=== PATIENT | male | born 1950 | race Caucasian/White ===

== ENCOUNTER 2019-07-25 09:20 | Day surgery (SDC) | payer MEDICARE, OTHER ==
[~2019-07-25 09:20] MED LIST: CEFAZOLIN 2 Gram 2 GM/50 ML BAG IVPB ONE; CELECOXIB 100 MG CAPSULE PO ONE; FAMOTIDINE 20MG TABLET PO ONE; MECLIZINE 25 MG TABLET PO ONE; METOCLOPRAMIDE 10 MG TABLET PO ONE; VANCOMYCIN 1GM/200ML PREMIX 1 GM/200 ML PIGGYBACK IVPB ONE
[2019-07-25] MEDS ORDERED: LIDOCAINE 2% MDV (20MG/ML) 20ML VIAL IV ONE (09:21)
[2019-07-25] MEDS ORDERED: PROPOFOL 10 MG/ML VIAL IV ONE (09:21)
[2019-07-25] MEDS ORDERED: GLYCOPYRROLATE 0.2 MG/ML ML IV ONE (09:21)
[2019-07-25] MEDS ORDERED: EPHEDRINE SULFATE 50 MG/ML ML IV ONE (09:21)
[2019-07-25] MEDS ORDERED: MIDAZOLAM HCL 2MG/2ML VIAL IV ONE (09:21)
[2019-07-25] MEDS ORDERED: RINGERS SOLUTION,LACTATED 1,000 ML IV ONE ×2 (10:20→12:30)
[2019-07-25] MEDS ORDERED: CIPROFLOXACIN HCL 0.0015 GM, PHENYLEPHRINE HCL 0.05 GM, KETOROLAC TROMETHAMINE 0.000625 GM MC ONE ×5 (15:30)
--- NOTE | 2019-07-25 17:49 | Physical Therapy Tx Note ---
Physical Therapy Tx Note - Treatment Note Total Time Spent With Patient: 30 Physical Therapy Tx Note: Detail (Pt awake/alert, cooperative for therapy, expressing need to urinate. Sensation intact to light touch in LEs. Minimal assist and use of trapeze to come to sitting at edge of bed. Attempted standing for use of urinal x 2, but patient was unable to fully come to standing, even with moderate assist of 2. Attempted use of urinal in sitting, unable to void. Pt was able to scoot up in bed w/contact guard assist and use of trapeze. Left reclined in bed w/call light in reach. Nrsg notified. Therapy assessment was not conducted beyond these activities.) Physical Therapy Plan: Compete evaluation, mobility and gait training, review HEP.
[2019-07-25] MEDS ORDERED: RINGERS SOLUTION,LACTATED 1,000 ML IV PRN (17:54)
[2019-07-25] MEDS ORDERED: MAGNESIUM HYDROXIDE 30 ML UDC PO PRN (17:55)
[2019-07-25] MEDS ORDERED: AL HYDROX/MAG HYDROX 30ML UD PO PRN (17:56)
[2019-07-25] MEDS ORDERED: METOCLOPRAMIDE HCL 10 MG/2 ML VIAL IVP PRN (17:58)
[2019-07-25] MEDS ORDERED: OXYCODONE HCL/APAP 5MG/325MG TABLET PO PRN (17:59)
[2019-07-25] MEDS ORDERED: ONDANSETRON HCL IV 4 MG/2 ML VIAL IVP PRN (17:59)
[2019-07-25] MEDS ORDERED: HYDROMORPHONE HCL 2 MG/ML VIAL IVP PRN (18:02)
[2019-07-25] MEDS ORDERED: TRAMADOL HCL 50 MG TABLET PO PRN (18:04)
[2019-07-25] MEDS ORDERED: ACETAMINOPHEN 325 MG TAB PO PRN (18:05)
[2019-07-25] MEDS ORDERED: DIPHENHYDRAMINE HCL 25 MG CAPSULE PO PRN (18:07)
[2019-07-25] MEDS ORDERED: NALOXONE 0.4 MG/1 ML VIAL IVP ONE (18:09)
[2019-07-25] MEDS: HYDROCODONE/APAP 5/325MG TABLET PO PRN (18:55)
[2019-07-25] MEDS: CEFAZOLIN 2 Gram 2 GM/50 ML BAG IVPB SCH (19:12)
[2019-07-25] MEDS ORDERED: SIMVASTATIN 20 MG TABLET PO SCH (22:00)
[2019-07-25] MEDS ORDERED: LIDOCAINE 2% JELLY 30 ML TUBE TOP ONE (22:43)
[2019-07-26] MEDS: CEFAZOLIN 2 Gram 2 GM/50 ML BAG IVPB SCH ×2 (02:21→13:00)
[2019-07-26] MEDS: HYDROCODONE/APAP 5/325MG TABLET PO PRN ×2 (05:31→10:02)
[2019-07-26] MEDS ORDERED: METFORMIN 500 MG TABLET PO SCH ×2 (08:00)
[2019-07-26] MEDS ORDERED: LISINOPRIL 2.5MG PO SCH (10:00)
[2019-07-26] MEDS ORDERED: PAROXETINE HCL 10 MG TABLET PO SCH (10:00)
[2019-07-26] MEDS ORDERED: PAROXETINE 20 MG PO SCH (10:00)
[2019-07-26] MEDS ORDERED: LISINOPRIL 5 MG TABLET PO SCH (10:00)
[2019-07-26] MEDS ORDERED: VICTOZA PEN SC SCH (10:00)
[2019-07-26] MEDS ORDERED: METFORMIN 1000MG PO SCH (10:00)
[2019-07-26] MEDS ORDERED: SENNOSIDES/DOCUSATE SODIUM UD CAPSULE PO SCH (10:00)
[2019-07-26] MEDS ORDERED: FENOFIBRATE 160 MG PO SCH (10:00)
--- NOTE | 2019-07-26 11:44 | Rehab Evaluation ---
Patient Information - Patient Information Diagnosis: DJD L knee Ordered Treatment: PT Evaluate and Treat Status: Initial Evaluation Surgery: Yes (L TKA) Date of Surgery: 07/25/19 Past Medical/Surgical Hx: PAST MEDICAL/SURGICAL HISTORY Past Surgical History TONSILS LEFT KNEE SX ? PMH - Respiratory Hx Respiratory Disorders Yes Hx Sleep Apnea Yes Hx of CPAP Yes: TOLD TO BRING DAY OF SX PMH - Cardiovascular Hx Cardiovascular Disorders Yes Hx Hypertension Yes: UNSURE OF CONTROL ON MEDS Exercise Tolerance Fair PMH - Neuro Hx Neurological Disorders Yes Hx Dementia Yes: MILD Comment: SHORT TERM MEMORY ISSUES PMH - GI Hx Gastrointestinal Disorders No PMH - Hx Genitourinary Disorders No PMH - Endocrine Hx Endocrine Disorders Yes Hx Diabetes Yes: DX'D 10 YRS AGO Hx of IDDM Yes Comment: DOES NOT CHECK BLOOD SUGARS, SOMETIMES FORGETS TO TAKE MEDS PMH - Musculoskeletal Hx Musculoskeletal Disorders Yes Hx Arthritis Yes: L KNEE AND LEFT SHOULDER PMH - Psych Hx Psychiatric Problems Yes Hx Depression Yes PMH - Hematology/Oncology Hx Hematology/Oncology No Disorders Premorbid Status: Detail (The patient was ambultory without device prior to surgery per his report.) Social History: Detail (The patient lives in an apartment with 10 steps at the enterance with one handrail. The bathroom is equipped with a tub/shower combination and standard height toilet. No grab bars are present in the bathroom. The patient has a front wheeled walker and a standard cane.) Precautions: [place], Fall, Other (WBAT on the L LE.) - Time With Patient Total Time Spent With Patient (Min): 30 Treatment Procedures: Detail (Initial Evaluation, low complexity) Subjective Information - Subjective Information Per Patient (The patient had complaints of L knee pain 7/8 at the highest using 0-10 pain scale.) Objective Data - Mental Status Patient Orientation: Oriented x3 (The patient did display impulsivity and questionable safety judgement at times.) - ROM Not within normal limits (The patient's L knee AROM is limited s/p surgery. All other LE AROM is WNL.) - Strength/Tone Not within normal limits (The patient's LE strength was not tested s/p surgery, however L LE knee musculaure weakness was present ie: patient had difficulty isolating hamstring and quadricep musculature. All other LE musculature was WFL.) - Bed Mobility Independent (The patient was independent with supine to and from sit transfer and scooting up in bed with use of trapeze.) - Transfers Independent (The patient is independent with sit to and from stand transfer and toilet transfer.) - Balance Balance Sitting: Good Balance Standing: Fair (The patient stood with support of walker and decreased weight bearing on L LE.) - Gait Detail (The patient ambulated with front wheeled walker a distance of 50 feet x 1 with supervision for safety and toe touch weight bearing on L LE due complaints of pain. The patient ambulated on 3 steps with CG of two and use of cane and one railing, pt. had an incident of L knee buckling when ambulated on stairs. Patient required verbal cueing to complete proper technique.) Therapy Assessment - Therapy Assessment Detail (The patient was independent with bed mobility and transfers. The patient required supervision for safety for ambulation and CG for stairs. The patient will have family member staying with him after discharge.) Patient Education - Patient Education Teaching Topic: Exercise/Activity (The patient completed TKA exercises which included supine heel slides, ankle pumps, quad sets, hamstring sets, gluteal sets and SLR. The patient had difficulty isolating quad and hamstrings possibly due to pain.) Response: Return Demonstration Teaching Method: Discussion Teaching Recipient: Patient Barriers To Learning: Age Related Problem List - Problem List Physical Therapy Problem List: Detail (1) Decreased L LE strength and Decreased L knee AROM as to be expected following surgery.) Goals - Goals Physical Therapy Goals: 1) The patient will ambulate on a flight of stairs using proper technique with supervision for safety. Prognosis - Prognosis Good Plan - Plan Physical Therapy Plan: PT 1-2 sessions for gait training on stairs.
--- NOTE | 2019-07-26 12:43 | Rehab Evaluation ---
Patient Information - Patient Information Diagnosis: DJD L knee Ordered Treatment: OT Evaluate and Treat Status: Initial Evaluation Surgery: Yes (L TKA) Date of Surgery: 07/25/19 Past Medical/Surgical Hx: PAST MEDICAL/SURGICAL HISTORY Past Surgical History TONSILS LEFT KNEE SX ? PMH - Respiratory Hx Respiratory Disorders Yes Hx Sleep Apnea Yes Hx of CPAP Yes: TOLD TO BRING DAY OF SX PMH - Cardiovascular Hx Cardiovascular Disorders Yes Hx Hypertension Yes: UNSURE OF CONTROL ON MEDS Exercise Tolerance Fair PMH - Neuro Hx Neurological Disorders Yes Hx Dementia Yes: MILD Comment: SHORT TERM MEMORY ISSUES PMH - GI Hx Gastrointestinal Disorders No PMH - Hx Genitourinary Disorders No PMH - Endocrine Hx Endocrine Disorders Yes Hx Diabetes Yes: DX'D 10 YRS AGO Hx of IDDM Yes Comment: DOES NOT CHECK BLOOD SUGARS, SOMETIMES FORGETS TO TAKE MEDS PMH - Musculoskeletal Hx Musculoskeletal Disorders Yes Hx Arthritis Yes: L KNEE AND LEFT SHOULDER PMH - Psych Hx Psychiatric Problems Yes Hx Depression Yes PMH - Hematology/Oncology Hx Hematology/Oncology No Disorders Premorbid Status: Detail (The patient was ambultory without single-point cane prior to surgery per his report.) Social History: Detail (The patient lives with his dog in an apartment with 9 steps at the enterance with bilateral handrail. The bathroom is equipped with a tub/shower combination and standard height toilet. No grab bars are present in the bathroom. The patient has a front wheeled walker and a standard cane. He drives to the laundromat and grocery store and manages his own meds and finances.) Precautions: [place], Fall, Other (WBAT on the L LE.) - Time With Patient Total Time Spent With Patient (Min): 30 (OT eval low, 1 SC) Treatment Procedures: Detail (OT eval: low complexity) Subjective Information - Subjective Information Per Patient (Ok to see per PHAM Tom. Pt states, "I'm old, I don't remember things." Son-in-law present for eval.) Objective Data - Pain Pain Present: Yes (05/15) - Mental Status Patient Orientation: Oriented x3 - Visual Perception Appears within normal limits for therapeutic activities - ROM Within normal limits (L shld flex and abduction chronic ROM and pain deficits, otherwise WFL R UE WFL) - Strength/Tone Within normal limits (L UE painful with MMT within AROM R UE WFL) - Coordination Appears within normal limits for therapeutic activities - Bed Mobility Needs Assist (Requires verbal instruction for problem solving, using trapeze to get to EOB, moving blankets that impede his mvmt, positioning self toward HOB as Pt feet hanging off end, etc.) - Transfers Needs Assist (Sit-stands with supervision - verbal instruction for hand placement and use of walker.) - Balance Balance Sitting: Good, Fair Balance Standing: Fair - Sensation Intact - Gait Detail (Fxl mobility within bedroom with supervision - verbal instruction for safety - using walker correctly positioned in front vs. on the side of Pt., reminders to go slow and steady, etc.) - ADL's/IADL's Detail (Setup assist and verbal instruction for technique to don underwear, pants, and socks. Pt likely at baseline level - can complete dressing indep, however increased time required d/t decreased executive functioning skills - poor sequencing and problem solving leading to completing steps out of order or with more effort than necessary.) Therapy Assessment - Therapy Assessment Detail (Pt tolerates session well pain-day and is likely near functional baseline, however demos cognitive deficits - impulsitivity, decreased safety awareness/judgement, poor problem solving and sequencing skills. Pt is indep. with med and finance mgmt at home. Pt's son-in-law will be staying with Pt 1 wk after DC and OT spoke with Pt and son re: setting up home for safety - shower chair, suction GB, hand-held shower attachment, slow and steady with fxl mobility and importance of walker use. Also mentioned concerns re: med/finance mgmt and Pt may benefit from son checking these high level cognitive tasks to ensure safety - taking meds correctly and ensuring bills paid.) Patient Education - Patient Education Teaching Topic: Equipment Use, Other (home mods and where to obtain equipment) Response: Return Demonstration, Reinforcement Needed, Verbalize Understanding Teaching Method: Discussion, Demonstration Teaching Recipient: Patient, Family Barriers To Learning: Cognitive/Verbal Problem List - Problem List Physical Therapy Problem List: Detail (1) Decreased L LE strength and Decreased L knee AROM as to be expected following surgery.) Occupational Therapy Problem List: Detail (Pt demos decreased safety awareness, judgement, sequencing, and problem solving, however is likely at baseline d/t dementia. Son is to stay with Pt 1 wk after DC to ensure safety and is aware of OT concerns re: higher level cognitive tasks - meds and finances.) Goals - Goals Physical Therapy Goals: 1) The patient will ambulate on a flight of stairs using proper technique with supervision for safety. Occupational Therapy Goals: No further skilled IP OT needs/goals identified. Prognosis - Prognosis Good Plan - Plan Physical Therapy Plan: PT 1-2 sessions for gait training on stairs. Occupational Therapy Plan: See Assessment for further details. No further skilled IP OT needs identified. Thank you for this referral.
--- NOTE | 2019-07-26 14:25 | Physical Therapy Tx Note ---
Physical Therapy Tx Note - Treatment Note Tolerated: Good Total Time Spent With Patient: 15 Physical Therapy Tx Note: Detail (The patient was in bed when PT arrived. The patient continued to have complaints of knee pain however they were less then this am. The patient was independent with supine to and from sit transfer and sit to and from stand transfer. The patient ambulated with front wheeled walker a distance of 70 feet x 1 weight bearing as tolerated on L LE independently. The patient ambulated on a flight of 3 stairs and 7 stairs with supervision for safety using one railing and proper technique. The patient's son in law was present to observe proper technique. The patient continues to require occasional verbal cues for proper ambulation technique (not putting walker too far out in front). The patient has met all inpt. PT goals and is discharged from inpt. PT.) Physical Therapy Problem List: Detail (1) Decreased L LE strength and Decreased L knee AROM as to be expected following surgery.) Physical Therapy Goals: 1) The patient will ambulate on a flight of stairs using proper technique with supervision for safety. (Goal Met) Physical Therapy Plan: The patient has met all inpatient PT goals and is discharged from inpt. PT. The patient is to recieve outpatient PT.
--- NOTE | 2019-07-26 15:41 | Operative Note ---
DATE OF SURGERY: 07/25/2019 SURGEON: James Hassan DO PREOPERATIVE DIAGNOSIS: Osteoarthritis of the left knee. POSTOPERATIVE DIAGNOSIS: Osteoarthritis of the left knee. OPERATION: Left total knee arthroplasty. DESCRIPTION OF PROCEDURE: This 69-year-old male was taken to the operating room and placed in the supine position on the operating room table. Spinal anesthetic was administered. The left lower extremity was elevated. It was prepped with Hibiclens and draped in the usual sterile fashion. It was exsanguinated and the tourniquet inflated to 300 mmHg. All scrub personnel wore personal isolation suits. An anterior longitudinal midline incision was made followed by a medial parapatellar arthrotomy incision. An intracondylar drill hole was made for the intramedullary alignment max, and a 6-degree valgus 11 mm cut was made in the distal femur. The wafer of bone was removed. Sizing jig was affixed and size 70 was seen to be the appropriate size. The 4-in-1 cutting block was pinned in 3 degrees of external rotation. The appropriate cuts were made. We then directed our attention to the proximal tibia, and an extramedullary alignment guide was used to cut the proximal tibia referencing a 10 mm cut off the lateral tibial plateau, which did not cut below the subchondral bone medially, so we dropped the block 2 mm to cut an additional 2 mm off the proximal tibia. This left only a very, very small area of the medial tibial plateau of sclerotic bone. We did not feel it was worth cutting off an additional 5 mm of bone to cover this extremely small area. We then drilled holes in this sclerotic bone for penetration of the cement into the bone. This area of sclerotic bone was an area of about 6-7 mm by 5 mm. The tibia was sized to a size 79 and the stem punch was used. The knee was taken through range of motion with first a 10 and then a 12 mm bearing which gave us excellent stability of the joint and resolution of his flexion contracture. The patella was cut and restored to anatomic height with a 37 x 8.6 mm patella. All components were felt to be stable throughout the nl range of motion. All trial components were then removed and the wound again copiously irrigated with lactated Ringer's solution. All bony surfaces were dried. All components were cemented into place and excess cement removed after the insertion of each component. Initially the tibia was cemented into place followed by the insertion of the tibial bearing, femoral component, and finally the patella. Once the cement had hardened, the knee was again taken through range of motion and felt to be stable. A drain was placed through a separate stab incision after copious irrigation of the knee and suctioning to remove any debris from the joint. The arthrotomy incision was then closed with a #2 Vicryl. The subcutaneous tissue was closed with 0 Vicryl and the skin was stapled. Sterile dressings applied with a Polar Care. The patient was taken to the recovery room in satisfactory condition. GROSS PATHOLOGY: This patient demonstrated severe medial component and patellofemoral osteoarthritis with full-thickness articular cartilage loss. In addition, there was evidence of grade 2 changes on the lateral side of the joint on the femoral side but grade 4 on the tibial side. Final components inserted were a [employer] size 70 cruciate retaining femur, a 79 tibia, a 12 mm anterior stabilized E1 bearing, and a 37 x 8.6 mm patella was used. ADRIENNE
--- NOTE | 2019-07-29 13:11 | Discharge Summary ---
DATE OF ADMISSION: 07/25/2019 DATE OF DISCHARGE: 07/26/2019 ADMITTING DIAGNOSIS: Osteoarthritis of the left knee. DISCHARGE DIAGNOSIS: Osteoarthritis of the left knee. OPERATIVE PROCEDURE: Elective left total knee arthroplasty. HOSPITAL COURSE: This 69-year-old male was admitted to the hospital for elective total knee arthroplasty and tolerated the operative procedure well. He progressed satisfactorily with physical therapy and will be discharged when that is complete. He will have outpatient physical therapy. He will wear his FIDE hose during the day and remove them at night. He was given a prescription for [place] 5/325 one or two every 6 hours as necessary for pain, and he was given 40. He will take aspirin 325 mg daily for 1 month. Routine wound care instructions were given. He will follow up in 2 weeks. Should he have any problems prior to being seen, he was instructed to call my office. ADRIENNE
== END 2019-07-26 15:42 | disposition home or self-care (01) ==
LOC: SUR 09:20 → MEDSURG 14:50 → SUR 07-26 15:42
PROVIDERS: ATTEND Orthopaedic Surgery
DX: M17.12 Unilateral primary osteoarthritis, left knee (principal); I10 Essential (primary) hypertension; E78.00 Pure hypercholesterolemia, unspecified; E11.9 Type 2 diabetes mellitus without complications; G47.33 Obstructive sleep apnea (adult) (pediatric)
CPT/HCPCS: 36416; 76942; 82948; J7120